=== PATIENT | female | born 1975 | race Caucasian/White ===

== ENCOUNTER 2017-10-27 09:31 | Inpatient (IN) | payer BC ==
[~2017-10-27] VITALS: Ht 170.2 cm; Wt 126.0 kg
--- OUTSIDE RECORDS SUMMARY | ~2017-10-27 | XMS | Clinical Summary ---
Demographics + + + | Address | [address] | | | [place] [address] | + + + | Home Phone | | + + + | Preferred Language | Unknown | + + + | Marital Status | | + + + | Temple Affiliation | Unknown | + + + | Race | Unknown | + + + | Ethnic Group | Unknown | + + + Author + + + | Author | [facility] | | | and [facility] | + + + | Organization | [facility] | | | and [place] | + + + | Address | Unknown | + + + | Phone | Unavailable | + + + Care Team Providers + +------+ + | Care General Car Yard Supervisor Name | Role | Phone | + [...] | 1976 | [phone] | [place] [address] | | | y[place]ka | | | [phone] | | + +--------+ +--------+ + +"
[~2017-10-27 09:31] MED LIST: ARMOUR THYROID180 MG; GABAPENTIN300 MG PO; IBUPROFEN800 MG PO; LIOTHYRONINE S25 MCG PO; LISINOPRIL2.5 MG; METOPROLOL TART50 MG PO; NORCO 5-325 TA1 EACH PO; SERTRALINE HCL100 MG PO; SYNTHROID150 MCG PO; ULTRAM50 MG PO
[2017-10-27] MEDS ORDERED: HYDROCHLOROTHIA25 MG PO (09:51)
[2017-10-27] MEDS ORDERED: SIMVASTATIN20 MG PO (09:52)
--- OUTSIDE RECORDS SUMMARY | 2017-10-27 09:55 | XMS | Clinical Summary ---
Demographics + + + | Address | [address] | | | [place] [address] | + + + | Home Phone | | + + + | Preferred Language | Unknown | + + + | Marital Status | | + + + | Alevism Affiliation | Unknown | + + + | Race | Unknown | + + + | Ethnic Group | Unknown | + + + Author + + + | Author | [facility] | | | and [facility] | + + + | Organization | [facility] | | | and [place] | + + + | Address | Unknown | + + + | Phone | Unavailable | + + + Care Team Providers + +------+ + | Care Inspector Floor Name | Role | Phone | + +------+ + | Len Mancia MD | PP | | + +------+ + Allergies + + + + + + | Active Allergy | Reactions | Severity | Noted | Comments | | | | | Date | | + + + + + + | Codeine | | | 04/24/20 | | | | | | 13 | | + + + + + + Current Medications + + +-------+---------+------+------+-------+ | Prescription | Sig. | Disp. | Refills | Star | End | Statu | | | | | | t | Date | s | | | | | | Date | | | + + +-------+---------+------+------+-------+ | thyroid (ARMOUR) | Take 120 mg by mouth | | | | | Activ | | 120 MG tablet | Daily. | | | | | e | + + +-------+---------+------+------+-------+ | thyroid (ARMOUR | Take 30 mg by mouth | | | | | Activ | | THYROID) 30 mg | Daily. | | | | | e | | tablet | | | | | | | + + +-------+---------+------+------+-------+ | cholestyramine | Take 4 g by mouth 2 | | | | | Activ | | light (QUESTRAN) 4 g | times daily. | | | | | e | | packet | | | | | | | + + +-------+---------+------+------+-------+ | metoprolol | Take 50 mg by mouth | | | | | Activ | | succinate | Daily. | | | | | e | | (TOPROL-XL) 50 mg 24 | | | | | | | | hr tablet | | | | | | | + + +-------+---------+------+------+-------+ | | Place 1 each | | | | | Activ | | etonogestrel-ethinyl | vaginally See Admin | | | | | e | | estradiol | Instructions. Insert | | | | | | | (NUVARING) | vaginally and leave | | | | | | | 0.12-0.015 MG/24HR | in place for 3 | | | | | | | vaginal ring | consecutive weeks, | | | | | | | | then remove for 1 | | | | | | | | week. | | | | | | + + +-------+---------+------+------+-------+ | sertraline | Take 100 mg by mouth | | | | | Activ | | (ZOLOFT) 100 mg | Daily. | | | | | e | | tablet | | | | | | | + + +-------+---------+------+------+-------+ Active Problems + + + | Problem | Noted Date | + + + | Hypothyroidism, iatrogenic | | + + + Social History + +-------+ +--------+------+ | Tobacco Use | Types | Packs/Day | Years | Date | | | | | Used | | + +-------+ +--------+------+ | Former Smoker | | | | | + +-------+ +--------+------+ + + +---------+ + | Alcohol Use | Drinks/We | oz/Week | Comments | | | ek | | | + + +---------+ + | Yes | | | rare | + + +---------+ + + + + | Sex Assigned at | Date Recorded | | | | + + + | Not on file | | + + + Plan of Treatment + + + + + | Health Maintenance | Due Date | Last Done | Comments | + + + + + | Vaccine: | | | | | Dtap/Tdap/Td (1 - | 4 | | | | Tdap) | | | | + + + + + | CERVICAL CANCER | | | | | SCREENING (PAP EVERY | 6 | | | | 3 YEARS 21-64 ) | | | | + + + + + | Vaccine: Influenza | | | | | (Season Ended) | 8 | | | + + + + + Results Not on filefrom Last 3 Months Insurance +---------+--------+ +------+ +---------+ | Payer | Benefi | Subscriber | Type | Phone | Address | | | t Plan | ID | | | | | | / | | | | | | | Group | | | | | +---------+--------+ +------+ +---------+ | REG[place] | REGENC | xxxxxxxxxxx | PPO | [phone] | | | E [employer] | [phone] | | [phone] | | | | [place] | | | | | | | PPO | | | | | +---------+--------+ +------+ +---------+ + +--------+ +--------+ + + | Guarantor Name | Accoun | Relation to | Date | Phone | Billing Address | | | t Type | Patient | of | | | | | | | | | | + +--------+ +--------+ + + | DOM WILKS | Person | Self [birth year] Home: | [address] | | | al/Fam | | 1976 | [phone] | [place] [address] | | | yamilka | | | [phone] | | + +--------+ +--------+ + +"
--- OUTSIDE RECORDS SUMMARY | 2017-10-27 09:55 | XMS ---
Demographics + + + | Address | [address] | | [place] [address] | + + + | Preferred Language | Unknown | + + + | Marital Status | Unknown | + + + | Mandaen Affiliation | Unknown | + + + | Race | Unknown | + + + | Ethnic Group | Unknown | + + + Author + + + | Author | [facility] | + + + | Organization | [facility] | + + + | Address | [address] | | | [place] [address] | + + + | Phone | | + + + Care Team Providers + + + + | Care Manager Style Name | Role | Phone | + + + + Unavailable | Unavailable | + + + + PROBLEMS + + + + + + + + | Type | Condition | ICD9-CM | [id number] | Onset | Condition | SNOMED | | | | Code | Code | Dates | Status | Code | + + + + + + + + | Problem | Lymphadeno | 785.6 | | | Active | [id number] | | | lolita NOS | | | | | | + + + + + + + + | Assessment | Maxillary | J01.00 | | 31 October, | Active | [id number] | | | sinusitis, | | | 2016 | | | | | acute | | | | | | + + + + + + + + ALLERGIES + + + + +--------+ | Substance | Reaction | Event Type | Date | Status | + + + + +--------+ | Percocet | Unknown | Drug Allergy | October, | Active | + + + + +--------+ | codeine | Unknown | Non Drug | October, | Active | | | | Allergy | | | + + + + +--------+ SOCIAL HISTORY No smoking Hx information available PLAN OF CARE VITAL SIGNS + + + + | Height | 69 in | 2016-10-31 | + + + + | Weight | 262.8 lbs | 2016-10-31 | + + + + | BMI | 38.80 kg/m2 | 2016-10-31 | + + + + | Temperature | 98.0 degrees Fahrenheit | 2016-10-31 | + + + + | Heart Rate | 92 /min | 2016-10-31 | + + + + | Blood pressure systolic | 158 mm Hg | 2016-10-31 | + + + + | Blood pressure diastolic | 112 mm Hg | 2016-10-31 | + + + + MEDICATIONS + + + + +--------+ + +--------+ | Medicati | Instruct | Dosage | Frequenc | Start | End Date | Duration | Status | | on | ions | | y | Date | | | | + + + + +--------+ + +--------+ | Metoprol | Orally | 1 tablet | 12h | | | | Active | | ol | Twice a | | | | | | | | Tartrate | day | | | | | | | | 100 MG | | | | | | | | + + + + +--------+ + +--------+ | Amoxicil | Orally | 1 tablet | 12h | | 16 October, | 10 | Active | | berry 875 | bid | | | | 2017 | day(s) | | | MG | | | | | | | | + + + + +--------+ + +--------+ | Zoloft | Orally | 1 tablet | 24h | | | | Active | | 200 mg | Once a | | | | | | | | | day | | | | | | | + + + + +--------+ + +--------+ | Lisinopr | Orally | 1 tablet | 24h | | | | Active | | il 20 MG | Once a | | | | | | | | | day | | | | | | | + + + + +--------+ + +--------+ | [place] | Orally | 1 tablet | 24h | | | 30 | Active | | Thyroid | Once a | | | | | day(s) | | | 180 MG | day | | | | | | | + + + + +--------+ + +--------+ RESULTS No Results PROCEDURES + + + + + | Procedure | Date Ordered | Related Diagnosis | Body Site | + + + + + | Est Level III | October 31, 2016 | | | | Intermediate | | | | + + + + + | DSCH[facility] MED/CURRENT | October 31, 2016 | | | | MED MERGE | | | | + + + + + | DOC MEDS VERIFIED | October 31, 2016 | | | | W/PT OR RE | | | | + + + + + IMMUNIZATIONS No Known Immunizations"
--- OUTSIDE RECORDS SUMMARY | 2017-10-27 09:55 | XMS | Clinical Summary ---
Demographics + + + | Address | [address] | | | [place] [address] | + + + | Home Phone | | + + + | Preferred Language | Unknown | + + + | Marital Status | | + + + | Episcopal Affiliation | Unknown | + + + | Race | Unknown | + + + | Ethnic Group | Unknown | + + + Author + + + | Author | [facility] | | | and [facility] | + + + | Organization | [facility] | | | and [place] | + + + | Address | Unknown | + + + | Phone | Unavailable | + + + Care Team Providers + +------+ + | Care Head Usher Name | Role | Phone | + [...] | 1976 | [phone] | [place] [address] | | | [place] | | | [phone] | | + +--------+ +--------+ + +"
--- NOTE | 2017-10-27 15:45 | NUR ---
CALLED TO REPORT FINDINGS FROM [facility] SCREENING POSITIVE. SAID HE WOULD PUT IN NEW ORDERS. WILL MONITOR PT CLOSELY.
--- NOTE | 2017-10-27 15:48 | NUR ---
PATIENT JUST ARRIVED FROM ED. THIS SPORTS NUTRITIONIST ASSISTED TO SET UP PATIENT WITH ORAL SWABS AND SCD'S. RN IN ROOM. CALL LIGHT IN REACH. NO OTHER NEEDS AT THIS TIME.
--- NOTE | 2017-10-27 16:44 | NUR ---
PT RECEIVED FROM ED. ADMISSION COMPLETED. PT WITH FEVER 101.5, TACHYCARDIC, NOTIFIED, ORDERS PLACED FOR IV FLUIDS, BLOOD CULTURES, AND TORAOL AND TYLENOL. PT PAIN 8/10, GIVEN 4 MG IV MORPHINE. PT ON ROOM AIR, LUNG SOUNDS CLEAR, DENIES SOB. PT WITH ABD PAIN TO RLQ, RADIATING TO BACK. CMS INATCT, PULSES PALPABLE. SKIN GROSSLY INTACT, MULTIPLE TATTOOS. IV FLUID BOLUS INFUSING, TYLENOL AND TORADOL GIVEN FOR PAIN AND FEVER. BLOOD CULTURES DRAWN. PT ASSISTED TO BATHROOM AND BACK TO BED. PT DENIES OTHER NEEDS AT THIS TIME.
--- NOTE | 2017-10-27 17:41 | NUR ---
PATIENT RESTING IN BED. RN IN ROOM. ORAL SWABS AT BEDSIDE, CALL LIGHT IN REACH, NO OTHER NEEDS AT THIS TIME.
--- NOTE | 2017-10-27 18:01 | NUR ---
PT REQUESTING PAIN MEDICATION, GIVEN 5 MG IV MORPHINE. IV ABX INFUSING. PT HR 107, TEMP 100.8. PT DENIES OTHER NEEDS AT THIS TIME.
--- NOTE | 2017-10-27 18:02 | NUR ---
PT RECEIVED FROM ED THIS EVENING. PT ON ROOM AIR, LUNG SOUNDS CLEAR. PT NPO. IV FLUIDS INFUSING D5LR AT 125 ML/HR, RECEIVED 1L LR BOLUS AND IV ABX. PT PAIN CONTROLLED WITH 5 MG IV MORPHINE. PT UP WITH SBA TO BATHROOM, VOIDING. POSSIBLE SURGERY IN THE AM.
--- NOTE | 2017-10-27 19:26 | NUR ---
BEDSIDE REPORT RECEIVED FROM ELIANA NOGUERA. PT AWAKE, LYING IN BED, RATES PAIN 3/10 IN RLQ. PT STATES SHE IS HAVING SOME NAUSEA, EDUCATED PT TO USE CALL LIGHT, CALL LIGHT IN REACH. PT HAS SCDS ON. GIVEN HOT BACK FOR NECK. D5LR INFUSING WNL.
--- NOTE | 2017-10-27 20:32 | NUR ---
CALL LIGHT ANSWERED, PT C/O 8/10 PAIN IN RLQ, AND FLANK, NAUSEA. PRN MORPHINE 5 MG IV AND IV ZOFRAN 4MG ADMINISTERED AT THIS TIME. BOWEL TONES ACTIVE X 4, ABDOMEN SOFT, TENDER IN RLQ W PALPATION. LUNGS DIMINISHED, CLEAR THROUGHOUT. HR REGULAR RHYTHM. PT DENIES TOILETING NEEDS. SCDS ON. WARM BLANKET PROVIDED, AFEBRILE. CALL LIGHT IN REACH, FAMILY IN ROOM TO VISIT.
--- NOTE | 2017-10-27 21:10 | NUR ---
CALL LIGHT ANSWERED, PT REQUESTING LIGHTS TURNED OFF, CPAP ON AT THIS TIME, NO ADDL REQUESTS. SCDS ON, IVF INFUSING.
--- NOTE | 2017-10-27 22:40 | NUR ---
IN PT ROOM TO CHECK ON PT, PT MOVING AROUND IN BED, REMOVED CPAP. PT RATES PAIN 10/10 IN ABDOMEN, PRN MORPHINE 8 MG IV ADMINISTERED AT THIS TIME, SBA TO RESTROOM FOR 300 ML CONCENTRATED VOID. BACK TO BED, SCDS ON. PILLOW GIVEN TO PT TO BRACE ABDOMEN. IVF INFSUING WNL. CALL LIGHT AND PERSONAL SUPPLIES IN REACH, PT GIVEN SIP OF WATER FOR COMFORT ALLOTTED, INSTRUCTED NPO OTHERWISE, PT VERBALIZED UNDERSTANDING. LIGHTS OFF IN ROOM.
--- NOTE | 2017-10-28 00:30 | NUR ---
IN PT ROOM FOR ANTIBIOTIC ADMINISTRATION, PT SITTING UP IN BED, EMESIS BAG IN HAND, PT C/O NAUSEA, PRN ZOFRAN 4MG ADMINISTERED AT THIS TIME. PT RATES PAIN 8/10, MOANING IN PAIN IN BACK, RLQ, STATES "I FEEL LIKE I'M GETTING STABBED IN MY BACK". PRN MORPHINE IV 8 MG, TORADOL, AND PRN TYLENOL ADMINISTERED AT THIS TIME. TEMPERATURE 100.6 ORALLY. BP 113/58 (71), HR 107, SPO2 97% ON ROOM AIR. BOWEL TONES PRESENT, HYPOACTIVE. ABDOMEN SOFT, TENDER IN RLQ W PALPATION. PT C/O SWELLING IN FEET, LEGS ELEVATED, NO EDEMA NOTED, CSM INTACT BUE, BLE. IV ANTIBIOIC INFUSING. CALL LIGHT IN REACH, PT HAS EMESIS BAG. GIVEN COOL CLOTH, ICE PACK. NO ADDL REQUESTS.
--- NOTE | 2017-10-28 01:34 | NUR ---
CHECKED ON PT, PT APPEARS TO BE SLEEPING, EYES CLOSED, HOME CPAP ON, SPO2 94%, HR 86. LIGHTS OFF IN ROOM.
--- NOTE | 2017-10-28 03:44 | NUR ---
CALL LIGHT ANSWERED, SBA TO RESTROOM FOR 600 ML VOID AND BACK TO BED, PT C/O 5.5-6/10 PAIN IN BACK, ABDOMEN, PT DRY HEAVING AT THIS TIME, NO EMESIS. PRN MORPHINE 5 MG AND PRN ZOFRAN 4MG ADMINISTERED IV. IVF INFUSING WNL, SCDS ON. CALL LIGHT IN REACH.
--- NOTE | 2017-10-28 05:29 | NUR ---
PT C/O PAIN IN BACK, RLQ THROUGHOUT SHIFT, RECEIVING MORPHINE, TORADOL, AND TYLENOL PRN THROUGHOUT SHIFT. C/O NAUSEA, NO EMESIS, PT DRY HEAVING, RECEIVING PRN ZOFRAN THROUGHOUT SHIFT. MINIMAL SLEEP, SATURATING WELL ON HOME CPAP AND ROOM AIR. SBA TO RESTROOM FOR QUANTITY SUFFICIENT VOIDS. IVF INFUSING WNL THROUGHOUT SHIFT. SCDS ON.
--- NOTE | 2017-10-28 05:57 | NUR ---
VITALS AND I&OS DONE AND CHARTED. GARBAGES EMPTIED. PT WOULD LIKE SOMETHING FOR NAUSEA. I TOLD HER RN KASHMIR.
--- NOTE | 2017-10-28 06:00 | NUR ---
PT C/O NAUSEA, CONTINUES TO DRY HEAVE, NO EMESIS, RATES PAIN 7/10 IN RLQ, BACK. PRN ZOFRAN 4MG AND PRN MORPHINE 5MG ADMINISTERED. BOWEL TONES PRESENT, HYPOACTIVE X 4, ABDOMEN SOFT, TENDER W PALPATION IN RLQ. PT ON ROOM AIR. IV ANTIBIOTIC INFUSING WNL. SCDS ON. CALL LIGHT IN REACH.
--- NOTE | 2017-10-28 06:31 | NUR ---
PHONE CALL TO DR. RODRIGUEZ TO UPDATE ON PT CONDITION, CONTINUED NAUSEA AND PAIN. TELEPHONE ORDER TO CHANGE ORDER FOR MORPHINE TO 4-8 MG Q30MIN IV PRN PAIN AND TO ADD PRN PHENERGEN 12.5 MG Q6H IV TO ORDERS. ORDERS REPEATED BACK.
--- NOTE | 2017-10-28 06:57 | NUR ---
PT CONTINUES TO DRY HEAVE, C/O NAUSEA, PRN PHENERGAN 12.5 MG ADMINISTERED AT THIS TIME. EMESIS BAG WITH PT, SCDS ON. IVF INFUSING WNL.
--- NOTE | 2017-10-28 07:10 | NUR ---
BEDSIDE HANDOFF REPORT RECEIVED FROM RADIAGRAPH OPERATOR RN. PT RESTING IN BED. D5LR INFUSING AT 125 ML/HR. PT DENIES NEEDS AT THIS ITME.
--- NOTE | 2017-10-28 08:00 | NUR ---
PT RESTING IN BED. PT RATING PAIN 3-4/10, DENIES NEED FOR PAIN MEDICATION. PT CONTINUES TO FEEL NAUSEATED, NPO, BOWEL TONES ACTIVE. PT ON ROOM AIR, LUNG SOUNDS CLEAR, DENIES SOB. PT CMS INTACT, WIHTOUT EDEMA, PULSES PALPABLE. D5LR INFUSING AT 125 ML/HR. PT DENIES OTHER NEEDS AT THIS TIME, REQUESTING TO REST.
--- NOTE | 2017-10-28 08:40 | NUR ---
STANDBY ASSIST TO BR. PATIENT BECAME VERY NAUSEAUS AND SAT DOWN ON SHOWER CHAIR FOR A FEW MINUTES. NEW GOWN GIVEN, STANDBY ASSIST BACK TO BED, PAITIENT PAIN LEVEL HAS INCREASED THIS AM WELL. URINE DRK PARVIZ IN COLOR, 400ML-REPORTED TO ELIANA NOGUERA. CALL LIGHT IN REACH, NEW PULSE OX ON FINGER. NO OTHER NEEDS.
[2017-10-28] MEDS ORDERED: PRINIVIL20 MG PO (08:47)
[2017-10-28] MEDS ORDERED: METOPROLOL TAR100 MG PO (08:47)
[2017-10-28] MEDS ORDERED: ARMOUR THYROID240 MG PO (08:48)
--- NOTE | 2017-10-28 09:15 | NUR ---
PT NAUSEATED, REQUESTING ANTIEMETIC, GIVEN 4 MG IV ZOFRAN. PT RATING PAIN 8/10, GIVEN 8 MG IV MROPHINE. PT DENIES OTHER NEEDS AT THIS TIME.
[2017-10-28] MEDS ORDERED: VITAMIN B-121000 MCG PO (09:38)
[2017-10-28] MEDS ORDERED: VITAMIN D10000 UNIT PO (09:39)
[2017-10-28] MEDS ORDERED: POTASSIUM GLUCO99 MG PO (09:39)
[2017-10-28] MEDS ORDERED: IBUPROFEN200 MG PO (09:40)
--- NOTE | 2017-10-28 09:47 | NUR ---
new bag of iv fluids hung and running at this time
--- NOTE | 2017-10-28 09:49 | NUR ---
MED REC COMPLETE
--- NOTE | 2017-10-28 10:50 | NUR ---
PT REQUESTING PAIN MEDICATION, RATING PAIN 7-8/10, GIVEN 8 MG IV MORPHINE. LACTIC LAB DRAW COMPLETED. SIGNED CONSENT PLACED ON CHART. PT DENIES OTHER NEEDS AT THIS TIME.
--- NOTE | 2017-10-28 12:30 | NUR ---
PT NAUSEATED AND COMPLAINT OF PAIN. GIVEN IV PHENERGAN AND MORPHINE. PT PLACED ON CPAP FOR NAP. IV FLUIDS CONTINUE TO INFUSE AT 125 ML/HR. NO ACUTE CHANGES. PT DENIES OTHER NEEDS AT THIS TIME. DISCUSSED PLAN TO SHOWER AFTER NAP, PT AGREEABLE.
--- NOTE | 2017-10-28 13:34 | NUR ---
Patient's antibiotic infusion complete, unhooked and capped line, patient has saline lock until next antibiotic infusion.
--- NOTE | 2017-10-28 14:04 | NUR ---
PT SALINE LOCKED FOR SHOWER, HEBICLEANSE SOAP PROVIDED. SHIRLEY TO ASSIST PT WITH SHOWER.
--- NOTE | 2017-10-28 14:15 | NUR ---
STANDBY ASSIST TO SHOWER,PATIENT WAS GIVEN HIBACLENS TO USE PER ELIANA NOGUERA. THIS MANAGER INTERNSHIP SET SHOWER UP, IN TO ASSIST PATIENT. LINENS CHANGED. THIS MANAGER INTERNSHIP ASSISTED PATIENT IN COMBING HAIR AFTER SHOWER. PAIN 03/07 RN NOITFIED. CALL LIGHT IN REACH
--- NOTE | 2017-10-28 14:28 | NUR ---
PT LAYING IN BED ON HER RIGHT SIDE. SHE WAS ALERT AND ORINETED BUT IN SOME PAIN. PT REQUESTED PRAYER, AND WILL CONTINUE TO FOLLOW NEEDED
--- NOTE | 2017-10-28 16:30 | NUR ---
PT TO OR WITH DAY SURGERY RN.
--- NOTE | 2017-10-28 17:57 | NUR ---
PT WENT FOR SURGERY THIS AFTERNOON. PRIOR TO SURGERY, PT WITH PAIN AND NAUSEA, CONSISTENTLY RECEIVED 8 MG IV MORPHINE, ZOFRAN AND PHENERGAN. UP WITH 1PA. IV FLUIDS D5LR AT 125 ML/HR, FLAGYL AND ANCEF.
--- NOTE | 2017-10-28 18:10 | EKG ---
[facility] [address] [place] [address] Signed Normal sinus rhythm Normal ECG No previous ECGs available Confirmed by BRAEDEN SLATER MD ([id number]) on 10/28/2017 6:09:47 PM Electronically Signed By: BRAEDEN SLATER MD 10/28/17 1810 PATIENT NAME: DOM SANDOVAL BRIAN Electrocardiogram DATE OF : 73 PHYSICIAN: BRAEDEN SLATER MD REPORT #: [id number] REPORT IS CONFIDENTIAL AND NOT TO BE RELEASED WITHOUT AUTHORIZATION
--- NOTE | 2017-10-28 18:48 | NUR ---
10/28/171847 Patsy Bravo PATIENT ARRIVES TO PACU W/SNORING SOUNDS HEARD. JAW LIFT DONE. PATIENT OPENS HER EYES AND FALLS QUICKLY BACK TO SLEEP WHEN JAW IS LIFTED. PATIENT BRACES ABDOMEN AND COUGHS AND TOLERATES THAT WELL.
--- NOTE | 2017-10-28 19:30 | NUR ---
PATIENT RETURNED FROM SURGERY. ABLE TO MOVE FROM STRETCHER TO BED WITHOUT ASSIST. REPORT RECEIVED FROM BLANKET WINDER OPERATOR. STRUCTURAL WELDER IN ROOM TO TAKE VS. PATIENT REQUESTING A FAN FOR COMFORT TO SLEEP. STRUCTURAL WELDER RECEIVED FAN FROM [facility].
--- NOTE | 2017-10-28 20:00 | NUR ---
PATIENT BACK FROM SURGERY. AAOX4. PAIN WELL CONTROLLED. 10/05. 2L NC, CONTINUOUS PULSE OX. O2 SAT 94%. NO NAUSEA. TOLERATING ICE CHIPS. ABD IS ROUND AND MODERATELY DISTENDED, TENDER. LAP SITES X4 WITH SMALL AMOUNT OF RED DRAINAGE. BOWEL SOUNDS ACTIVE. CALVO IN PLACE. IV FLUIDS INFUSING PER ORDER. SCDS IN USE. PATIENT WAS ABLE TO TRANSFER TO BED FROM [facility] WITHOUT ASSISTANCE. STEADY ON HER FEET BUT VERY PAINFUL. MEDS MECHANIC SENIOR PER SCHEDULE. RT SET UP PATIENT'S CPAP. ALL QUESTIONS ANSWERED. VS WNL.
--- NOTE | 2017-10-28 21:07 | NUR ---
PATIENT REPORTS PAIN INCREASED TO 8/10. PRN MORPHINE PROVIDED. PATIENT INTERESTED IN EATING SOME FOOD. DECIDED ON SOME SOUP WHICH MANAGER GROUP HOME WILL MAKE HER.
--- NOTE | 2017-10-28 21:50 | NUR ---
PATIENT REQUESTED SOME SOUP, WHICH SHE WAS ABLE TO TOLERATE WITHOUT NAUSEA. SHE CONTINUES TO REPORT PAIN, 01/04. PRN MORPHINE PROVIDED.
--- NOTE | 2017-10-28 22:20 | NUR ---
SCHEDULED ABX STARTED. PATIENT HAS HAD NO NAUSEA AND BEEN ABLE TO TOLERATE SOME REGULAR FOOD. PROVIDED 1 TAB NORCO TO OBTAIN BETTER PAIN CONTROL. PATIENT IS AAOX4. O2 SAT 94% ON 2L. RR 16. OTHER VS WNL. SHE IS READY TO TRY TO SLEEP. CPAP IN USE NOW. SCDS ON. CALVO DRAINING WELL, URINE OUTPUT QS. IV FLUIDS INFUSING PER ORDER. LAP SITES WNL.
--- NOTE | 2017-10-28 23:52 | NUR ---
PATIENT IS LAYING IN BED WITH HER HEAD COVERED WITH BLANKET AND CPAP IN PLACE. IF FLUIDS FINISHED. NEW BAG STARTED. PATIENT DENIES NEEDS AT THIS TIME. O2 SAT 96%.
--- NOTE | 2017-10-29 00:30 | NUR ---
PATIENT WOKE FROM SLEEP FEELING VERY NAUSEOUS. PROVIDED PRN ZOFRAN. PATIENT ALSO REQUESTING PRN PAIN MEDS. IV TORADOL GIVEN. PATIENT RESTING IN BED SITTING UP. EMESIS BAG IN HAND.
--- NOTE | 2017-10-29 00:50 | NUR ---
PATIENT ACTIVELY VOMITING. REQUESTING PRN PAIN MEDS WELL. ASSURED HER THAT GETTING HER NAUSEA UNDER CONTROL FIRST IS THE BEST PLAN. PRN PHENERGAN GIVEN OVER 8MINS ON THE IV PUMP. WILL CONTINUE TO MONITOR.
--- NOTE | 2017-10-29 01:25 | NUR ---
PATIENT FEELS THE NAUSEA HAS PASSED. SHE IS AAOX4. RR 16. O2 SAT 98% ON 2L NC. PATIENT REQUESTING PRN PAIN MEDS FOR PAIN 12/05. PRN MORPHINE PROVIDED. PATIENT REQUESTING SOME SALTINE CRACKERS. ANANDA SEPTEMBER RECEIVED HER SNACK AND COMPLETED VS.
--- NOTE | 2017-10-29 01:45 | NUR ---
VITALS AND I&OS DONE AND CHARTED. PER PT REQUEST I GAVE HER SOME SALT CRACKERS. FRESH ICE WELL. BEDSIDE TABLE AND CALL LIGHT WITHIN REACH. PT NEEDS NOTHING ELSE AT THIS TIME.
--- NOTE | 2017-10-29 02:00 | NUR ---
VS WNL. PATIENT REPORTS NAUSEA HAS IMPROVED. GOING TO TRY SLEEPING SOME MORE. CPAP IN USE.
--- NOTE | 2017-10-29 04:30 | NUR ---
PATIENT WAS ABLE TO SLEEP FOR A FEW HOURS BUT WOKE WITH INCREASED PAIN. PRN MORPHINE PROVIDED. PATIENT REPORTS SOME "CRAMPING" PAIN IN HER STOMACH. WARM BLANKET PROVIDED FOR COMFORT. SHE REFUSES TO AMBULATE AT THIS TIME, STATES "IT ISN'T GAS PAIN, IT'S LIKE I NEED TO GO TO THE BATHROOM BUT I DON'T". EDUCATED HER ON THE SHORT TERM EFFECTS OF IV PAIN MEDS AND BENEFITS OF PO PAIN MEDS. ENCOURAGED HER TO TRY EATING TO SEE IF SHE CAN TOLERATE NORCO THIS AM.
--- NOTE | 2017-10-29 05:45 | NUR ---
PATIENT SLEPT OFF AND ON THROUGHOUT THE NIGHT. PRN MORPHINE PROVIDED X4. PATIENT EXPERIENCED ONE EPISODE OF EMESIS AFTER EATING SOUP AND HAVING 1 NORCO. NO NAUSEA SINCE IV PHENERGAN GIVEN AT 0050. PATIENT TOLERATING WATER AND CRACKERS, BUT HAS POOR APPETITE. IV FLUIDS INFUSING PER ORDER. CALVO IN PLACE, OUTPUT QS. LAP SITES X4, STERI STRIPS. MINIMAL DRAINAGE. SCDS. 2L NC WHILE AWAKE AND CPAP WHILE SLEEPING. SBA TO BATHROOM.
--- NOTE | 2017-10-29 06:15 | NUR ---
PATIENT IS UNCOMFORTABLE IN THE BED AND HAVING ABD CRAMPING. ENCOURAGED HER TO AMBULATE. PATIENT ABLE TO SIT TO SIDE OF BED EASILY BUT BECAME LIGHTHEADED AND DIZZY WHEN STANDING. SAT AT SIDE OF BED FOR 5MIN. ABLE TO AMBULATE TO RECLINER WITH 1PA HOLDING HER HAND. PATIENT FEELS MORE COMFORTABLE SITTING UP. SHE IS WANTING TO GO HOME EARLY THIS AM. DISCUSSED NEED FOR PROPER PAIN CONTROL AND CONTROL OF NAUSEA. PATIENT IS EATING CRACKERS AND ICE CHIPS, DENIES NAUSEA. WANTING TO TRY SOME NORCO FOR PAIN MANAGEMENT. 1 NORCO PROVIDED WITH SOME PRN ZOFRAN. IV ABX STARTED. PATIENT WANTING CALVO REMOVED. WILL DISCUSS THIS WITH .
--- NOTE | 2017-10-29 06:56 | NUR ---
SPOKE WITH ABOUT PATIENT'S STATUS. HE AGREED TO DC THE CALVO WHICH WAS DONE AT 0645. IV TO BE SL, IV ABX INFUSING AT THIS TIME. PATIENT DENIES ANY NAUSEA BUT FEELS HER STOMACH IS BURNING FROM LACK OF FOOD. SHE HAS ORDERED BREAKFAST AND IS EATING CRACKERS.
--- NOTE | 2017-10-29 07:56 | NUR ---
HELPED PATIENT TRANSFER FROM HER CHAIR BACK TO BED. NOW SHE IS WAITING FOR HER BREAKFAST.
--- NOTE | 2017-10-29 08:03 | NUR ---
patient called because she was starting to get nauseated. phenergan 12.5 given. patient assisted from chair back to bed. patient tolerated transfer with stby assist. awaiting breakfast. patient stating, "i really wants to try and go home today". updated patient on place of care. patient is due to void and needs to ambulate in [place]. assessment complete.
--- NOTE | 2017-10-29 08:51 | NUR ---
PATIENT'S PAIN IN HER ABDOMEN IS AT A 7/10 AFTER TAKING A NORCO 1 TABLET AT 0630 PATIENT GIVEN HER SECOND NORCO AT THIS TIME. SHE TOLERATED HER OATMEAL SO IV WAS SALINE LOCKED AT THIS TIME.
--- NOTE | 2017-10-29 08:51 | NUR ---
one tab of norco given for pain. patient finished 100 percent of oatmeal. nausea remains okay at this time.
--- NOTE | 2017-10-29 09:32 | NUR ---
patient stating pain improving with 1 tab norco. was able to tolerate 50 percent of breakfast and was wanting to pick at home other items on tray. patient stating as of right now now nausea. patient requesting to rest until 1000 and then agreed to go on walk in [place]. patient is still due to void. patient stating no urge to void at this time.
--- NOTE | 2017-10-29 10:49 | NUR ---
PT RESTING IN BED. SAID THAT NAUSEA IS NOT AN ISSUE NOW. SHE STATED HER BP IS LOW, AND SHE WONDERS IF THAT IS CAUSING HER DIZZINESS. SHE NORMALLY HAS TO DEAL WITH HIGH BP. SHE HOPES TO BE DC'D TODAY. PT REQUESTED PRAYER, WILL FOLLOW NEEDED
--- NOTE | 2017-10-29 11:41 | NUR ---
PT WAKLED ONE FULL LAP AND THEN WAS ABLE TO VOIED 100ML OF URINE. PT IS NOW RESTING IN BED AND ASKING FOR PAIN MEDS AND WHEN SHE CAN GO HOME. WILL NOTIFY NURSE
--- NOTE | 2017-10-29 12:13 | NUR ---
PATIENT STATED THAT AFTER HER WALK HER PAIN WAS 7/10. NO NAUSEA. STARTING TO EAT ON HER LUNCH WHILE RESTING IN BED. 1 TAB NORCO GIVEN. TORADOL GIVEN. CALL LIGHT WITHIN REACH. VITALS RECHECKED. DAHIANA ALSO WAS ABLE TO VOID 100MLS. PATIENT STATING SHE STILL FEELS LIGHT HEADED WHEN AMBULATING. EDUCATION ABOUT CALLING FOR ASSISTANCE WHEN GETTING UP IN ROOM.
--- NOTE | 2017-10-29 12:50 | NUR ---
PATIENT SITTING UP IN BED. PATIENT STATING NO NAUSEA AT THIS TIME. PAIN IMPROVED. TOLERATED LUNCH WELL. NO NAUSEA.
[2017-10-29] MEDS ORDERED: MAPAP325 MG PO (14:52)
[2017-10-29] MEDS ORDERED: HYDROCODON-ACE1 EA11 PO (14:52)
--- NOTE | 2017-10-29 16:05 | NUR ---
DR. RODRIGUEZ INTO ROOM TO EVALUATE PATIENT. DISCHARGED INFORMATION GIVEN TO PATIENT. PHARMACY IN ROOM TO GIVEN MEDICATION INFORMATION.
--- NOTE | 2017-10-30 10:03 | HP ---
[facility] [address], [place] [address] Signed ADMISSION DATE: 10/27/2017 TIME: 3:00 p.m. PROBLEM: Right-sided abdominal pain, fever, elevated white count. HISTORY OF PRESENT ILLNESS: This morbidly obese white woman presented to the emergency room where she was thoroughly evaluated by Dr. Trevino. Her complaint was mostly right-sided abdominal pain mostly in the right mid abdomen. She had complaints of nausea without vomiting. All of her pain started about last night at midnight. She does admit that there was some antecedent buildup of right-sided abdominal pain earlier in the day yesterday. Her evaluation included a clinical exam showing right-sided abdominal tenderness and CBC showing white count of 14.1 with a normal Chem profile, liver enzymes, and lipase. Coag studies normal and urinalysis also normal. Of note, patient has undergone cholecystectomy in the past by laparoscopic approach and hysterectomy with preservation of both ovaries. Ultimately, a CT scan of the abdomen was performed, which showed surgical absence of the gallbladder with the appendix considered normal and retrocecal. Small and large bowel normal, and surgical absence of the uterus, but the right ovary appeared to be indistinguishable from adjacent bowel loops, and may have contained a cyst. The bladder was thick-walled due to decompression. Recommendation was made for a transvaginal ultrasound, which was performed in addition to pelvic ultrasound, which showed right ovary and adnexal region obscured by bowel gas. The patient does smoke occasionally, but does not drink alcohol. SOCIAL HISTORY: She is . She has three children of her own, and three additional foster children, one infant who will additionally be adopted. 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 REVIEW OF SYSTEMS: She denies any shortness of breath or chest pain. She has had no dysphagia. She feels "hot." Notably, she describes Graves' disease, for which she has had radiation treatment. I am uncertain of her current thyroid status. Electronically Signed By: ELEONORA RODRIGUEZ MD 10/30/17 1003 PATIENT NAME: DOM SANDOVAL HISTORY AND PHYSICAL DATE OF : 73 REPORT #: [id number] PHYSICIAN: ELEONORA RODRIGUEZ MD PCP: EREN MANCIA MD REPORT IS CONFIDENTIAL AND NOT TO BE RELEASED WITHOUT AUTHORIZATION [facility] [address], [place] [address] Signed PHYSICAL EXAMINATION: GENERAL: An obese white woman who looks to be quite uncomfortable. She is laying on her right side. Her knees are somewhat withdrawn up. Her trachea is midline. NECK: Not particularly tender. CHEST: Shows normal respiratory excursion without tachypnea. HEART: Regular. ABDOMEN: Obese. There is minimal Rovsing sign, and some tenderness in the right abdomen. SKIN: Her skin is hot to the touch and dry. She has no sign of diaphoresis. EXTREMITIES: No clubbing, cyanosis, or edema. LABORATORY DATA: Lab studies were as previously described. Most notably, white count elevated at 14.1. Her CT scan reports are available to me, but the images are not available at this moment. I will need to look at them in a different workstation. ASSESSMENT: She has elevated white count, temperature to 102. Generally is doing poorly, and with right-sided abdominal pain. Her tenderness is above the level of the appendix, and she has had cholecystectomy in the past. She shows no sign of bowel ischemia, or bowel obstruction particularly. I believe at minimum she needs to be directly admitted to the hospital given additional fluid resuscitation, and we will make an assessment of her thyroid function tests as well given her history of thyrotoxicosis. Notably, she is a patient Dr. Mancia. Close clinical examination would be most appropriate in her situation. She may ultimately require laparoscopy or other intervention to better define the problem. We reviewed this in detail, and she agrees. MD KELLI Perales/TRANGL /[id number] cc: Dr. Trevino. Dr. Mancia. Electronically Signed By: ELEONORA RODRIGUEZ MD 10/30/17 1003 PATIENT NAME: DOM SANDOVAL HISTORY AND PHYSICAL DATE OF : 73 REPORT #: [id number] PHYSICIAN: ELEONORA RODRIGUEZ MD PCP: EREN MANCIA MD REPORT IS CONFIDENTIAL AND NOT TO BE RELEASED WITHOUT AUTHORIZATION [facility] [address], [place] [address] Signed Copies: ~ Electronically Signed By: ELEONORA RODRIGUEZ MD 10/30/17 1003 PATIENT NAME: DOM SANDOVAL BRIAN HISTORY AND PHYSICAL DATE OF : 73 REPORT #: [id number] PHYSICIAN: ELEONORA RODRIGUEZ MD PCP: EREN MANCIA MD REPORT IS CONFIDENTIAL AND NOT TO BE RELEASED WITHOUT AUTHORIZATION
--- NOTE | 2017-10-30 10:03 | OR ---
[facility] [address] [place], [place] [address] Signed DATE OF OPERATION: 10/28/2017 SURGEON: Eleonora Rodriguez MD PREOPERATIVE DIAGNOSES: 1. Persistent right mid abdominal pain. 2. Morbid obesity. 3. History of hysterectomy and cholecystectomy. POSTOPERATIVE DIAGNOSES: 1. Inflamed right periovarian cystic lesion, tube versus ovarian cyst. 2. Difficult airway. PROCEDURES: 1. Laparoscopy with laparoscopic lysis of adhesions. 2. Laparoscopic excision of right ovary and inflamed periovarian cystic lesion (prolonged complicated difficult). ANESTHESIA: General endotracheal, Olivia Lester CRNA and local 15 mL of 0.25% Marcaine with epinephrine. INDICATION: This morbidly obese 42-year-old white woman has numerous medical problems including hypertension, smoking and so on. She presented to the emergency room yesterday with severe right mid abdominal pain. A CT scan showed no clear evidence of lesion. However, there were findings associated with her ovary that were suggestive of possible source of the problem. She has had cholecystectomy in the past and ovary sparing hysterectomy. She had no evidence of bowel obstruction or other issues. She was observed after antibiotic therapy was initiated and offered laparoscopic evaluation last night, which she declined hoping that she would improve. Her white count was initially elevated to 14.1 and is normal today. Today, however, an AST and ALT liver enzymes increased to the 400s level preoperatively in the teens. Her bilirubin and alkaline phosphatase are normal. She is noted to have a poor airway including small chin obesity and so forth, but mindful of these significant impediment to care is to now undergo a laparoscopy and remedy of the problem even if it requires an open approach. She understands risks of bleeding, infection, failure of diagnosis, missed diagnosis, need for open procedure and Electronically Signed By: ELEONORA RODRIGUEZ MD 10/30/17 1003 PATIENT NAME: DOM SANDOVAL OPERATIVE REPORT DATE OF : 73 REPORT #: [id number] PHYSICIAN: ELEONORA RODRIGUEZ MD PCP: EREN MANCIA MD REPORT IS CONFIDENTIAL AND NOT TO BE RELEASED WITHOUT AUTHORIZATION [facility] [address] [place], [place] [address] Signed other unforeseen complications and wished to proceed. FINDINGS: The problem causing the issue was a very inflamed periovarian cystic lesion. I could not tell whether this was a chronically inflamed retained tube or a somewhat abnormal appearing cystic lesion of the ovary itself. The ovary proper was normal, however, was contiguous with the inflamed lesion and could not be spared. There were adhesions of omentum and in particular taenia epiploica from the sigmoid to the anterior abdominal wall requiring lysis of adhesions for good exposure. The small bowel itself looked normal. The appendix was normal. The gallbladder was absent. The liver appeared reasonably normal with only mild fatty infiltration. By conclusion, the entire right ovary and the contiguous inflamed cyst were removed entirely. DESCRIPTION OF PROCEDURE: The patient was brought to the operating room, given a general endotracheal anesthetic with the aid of a GlideScope. She was noted by the lean manufacturing coordinator to have a difficult airway based on her jaw configuration obesity and so on. After satisfactory anesthesia, the abdomen was prepared with a chlorhexidine solution and draped sterilely after placement of a Burt catheter. She had other incisions in the region of the umbilicus and a non incarcerated incisional hernia at the umbilicus. An infraumbilical incision was made and using an open Shawn cannula technique, the abdomen was entered without problem. Plan for pneumoperitoneum to a level of 14 mmHg with carbon dioxide gas. Intraabdominal inspection was undertaken showing some inflammatory fluid in the right lower abdomen. No sign of purulence, however. The appendix was visible and appeared reasonably normal as did the cecum and terminal ileum. A 12 mm epigastric port was placed. The camera placed to that area allowing for manipulation of the right-sided abdominal organs. Examination of the upper abdomen showed the liver to be reasonably normal. There was surgical absence of the gallbladder. A lower mid 5 mm trocar was placed allowing for two hand manipulation of the organs. The cecum was more fully evaluated as was the terminal ileum which appeared normal. The appendix was elongated, but normal and not inflamed at all particularly. Attention was then turned towards the right ovary. The head was placed somewhat head-down and [id number]. This allowed for manipulation of the ovary which was somewhat adherent to the right pelvic sidewall. The inflamed cystic lesion was nearly the size of the ovary and did not have the typical appearance of an ovarian cyst. Almost that of an inflamed closed loop type problem of retained right salpinx. In any Electronically Signed By: ELEONORA RODRIGUEZ MD 10/30/17 1003 PATIENT NAME: DOM SANDOVAL OPERATIVE REPORT DATE OF : 73 REPORT #: [id number] PHYSICIAN: ELEONORA RODRIGUEZ MD PCP: EREN MANCIA MD REPORT IS CONFIDENTIAL AND NOT TO BE RELEASED WITHOUT AUTHORIZATION [address] [address] Signed case this meticulously dissected free from the surrounding soft tissue including the abdominal wall. Ultimately, the ovary and the cystic lesions to be clearly contiguous and not separable by any means. An Endo SILVIANO stapling device was used to transect the infundibulopelvic ligament containing the offending ovary and lesion. Additional dissection was undertaken. This lesion was placed in the endobag and extracted through the infraumbilical port site without problem and opened on the back table. Reinspection of the site showed focal bleeding, but irrigation was undertaken and minimal amounts of cautery were used in the area of the vascular pedicle. Shelley hemostatic agent was applied to the area as well, once hemostasis was assured. The appendix was re-examined and found to be normal. I did not proceed with appendectomy. The ileum was normal. The trocars were removed under direct visualization showing no sign of bleeding. The infraumbilical fascial incision was reapproximated with interrupted 0 Vicryl suture. All wounds were copiously irrigated with saline solution and skin closed with interrupted 3-0 Vicryl. Steri-Strips were applied after application of local anesthetic, 15 mL in total of 0.25% Marcaine with epinephrine. The patient was extubated, but not extubated in the deep state of sedation these were in precarious airway and she did have a fair amount of forceful coughing which I stabilized at the operative site perpetually until the coughing resolved. MD KELLI Perales/ANCELMO /[id number] cc: Ashish Mancia MD Copies: ASHISH METZGER RUSSELL BARR MD ~ Electronically Signed By: ELEONORA RODRIGUEZ MD 10/30/17 1003 PATIENT NAME: DOM SANDOVAL OPERATIVE REPORT DATE OF : 73 REPORT #: [id number] PHYSICIAN: ELEONORA RODRIGUEZ MD PCP: EREN MANCIA MD REPORT IS CONFIDENTIAL AND NOT TO BE RELEASED WITHOUT AUTHORIZATION
--- NOTE | 2017-11-02 12:56 | DS ---
[facility] [address] [place], [place] [address] Signed ADMISSION DATE: 10/27/2017 DISCHARGE DATE: 10/29/2017 REASON FOR ADMISSION: This morbidly obese white woman presented to the emergency room where she was thoroughly evaluated by Dr. Trevino with complaint of mid right abdominal pain. The pain started the night prior at about midnight. She had the buildup of antecedent pain on the right side earlier in the day. Clinical exam showed right mid abdominal tenderness. CBC with a white count of 14.1. Normal Chem profile, liver enzymes and lipase and urinalysis. The patient has undergone cholecystectomy in the past as well as hysterectomy with preservation of both ovaries. A CT scan of the abdomen was performed, which showed surgical absence of the gallbladder with the appendix considered normal and retrocecal, and the small and large bowel normal with surgical absence of the uterus, but right ovary, which appeared to be somewhat indistinguishable from adjacent bowel loops, which may have contained a cyst. Bladder was thick walled. She has a distant history of Graves disease, ultimately found to be 11 years previously, for which radioactive iodine ablation was employed. She was admitted for her abdominal pain at this time. PHYSICAL EXAMINATION: GENERAL: An obese woman who looked quite uncomfortable laying on her right side and knees drawn up. CHEST: Clear. HEART: Regular without murmur. ABDOMEN: Obese. Minimal Rovsing sign. Some tenderness in the right abdomen, not at McBurney point. SKIN: Hot and dry to touch. EXTREMITIES: There is no clubbing, cyanosis, or edema. HOSPITAL COURSE: She was admitted given fluid resuscitation and further consideration of her CT scan was undertaken, reviewed directly with the radiologist. A transvaginal and pelvic ultrasound had been obtained, which could not distinguish the right ovary from surrounding small bowel due to echo artifact. She had already undergone cholecystectomy in the past as well as hysterectomy. It was somewhat unusual to note on the following day of admission that her liver enzyme, AST and ALT were both elevated though the alkaline phosphatase and bilirubin were normal. She had a fair amount of "dry heaves and abdominal pain." She was considered appropriate for exploratory laparoscopy, however, she declined and Electronically Signed By: ELEONORA RODRIGUEZ MD 11/02/17 1256 PATIENT NAME: DOM SANDOVAL DISCHARGE SUMMARY DATE OF : 73 REPORT #: [id number] PHYSICIAN: ELEONORA RODRIGUEZ MD PCP: EREN MANCIA MD REPORT IS CONFIDENTIAL AND NOT TO BE RELEASED WITHOUT AUTHORIZATION [facility] [address] [place], [place] [address] Signed wished to be reevaluated in 24 hours. The following day, she was evaluated and found to have persistent episodes of dry heaves without fever at that point. She was considered possibly to have an ovarian problem, though it was not entirely clear and whether or not the appendix may have evolved in an appendicitis type issue. On November 28, 2017, she underwent laparoscopy where she was found to have an inflamed cystic lesion densely adherent to the right ovary; whether it was an ovarian cyst or a remnant of tube with torsion or something else was uncertain. The ovary itself appeared healthy. The cystic lesion attending to it quite inflamed. The appendix was not particularly retrocecal, was identified and was not resected as it was entirely normal. Excision of the right ovary with the adherent cystic lesion was undertaken without problem. She did well following operation. Her pain essentially resolved entirely, thanks to excision of ovary and its cystic pathologic process. By the time of discharge, she is ambulating well, tolerating regular diet, has minimal incisional pain, well managed by oral analgesics. She is discharged to home anticipating return in about a month. Wound instructions include keeping Steri-Strips on. Shower is okay tomorrow. She should lift no more than 20 pounds in the next 2 weeks FOLLOWUP PLAN: She will return to see me in approximately a month, sooner if there are problems of course. DISCHARGE MEDICATIONS: 1. [place] 7.5/325 1-2 p.o. q.6 hours p.r.n. pain #10. 2. Plain Tylenol 325 mg tablets two tabs p.o. q.6 hours as needed for pain. 3. Sertraline one tablet p.o. daily, 100 mg. 4. Hydrochlorothiazide 25 mg p.o. daily. 5. Simvastatin 20 mg p.o. daily. 6. Lisinopril 20 mg p.o. daily. 7. Metoprolol 100 mg p.o. b.i.d. 8. [place] Thyroid 240 mg p.o. daily. 9. Vitamin B12 1000 mcg orally daily. 10. Vitamin D3 10,000 units orally daily. 11. Potassium gluconate 99 mg p.o. daily. 12. Ibuprofen 200 mg as needed for pain. Electronically Signed By: ELEONORA RODRIGUEZ MD 11/02/17 1256 PATIENT NAME: DOM SANDOVAL DISCHARGE SUMMARY DATE OF : 73 REPORT #: [id number] PHYSICIAN: ELEONORA RODRIGUEZ MD PCP: EREN MANCIA MD REPORT IS CONFIDENTIAL AND NOT TO BE RELEASED WITHOUT AUTHORIZATION [place] [address] Signed DISCHARGE DIAGNOSES: 1. Severe abdominal pain related to ovarian process adherent to right ovary, uncertain at present whether ovarian cyst or torsion of tube remnant. 2. Status post laparoscopic excision of right adnexal tissues, October 28, 2017. 3. Morbid obesity. 4. Hypothyroidism. 5. Hypertension. FOLLOWUP PLAN: She is return to see me in approximately a month. She will also continue with her usual physician, Dr. Mancia. MD KELLI Perales/TRANGL /[id number] cc: Dr. Uriel Mancia Copies: ~ Electronically Signed By: ELEONORA RODRIGUEZ MD 11/02/17 1256 PATIENT NAME: DOM SANDOVAL DISCHARGE SUMMARY DATE OF : 73 REPORT #: [id number] PHYSICIAN: ELEONORA RODRIGUEZ MD PCP: EREN MANCIA MD REPORT IS CONFIDENTIAL AND NOT TO BE RELEASED WITHOUT AUTHORIZATION
== END 2017-10-29 16:10 | disposition home or self-care (01) | DRG 742 ==
LOC: ED 09:31 → MS 15:03
PROVIDERS: ADMIT Surgery
PROC: 0UT04ZZ Resection of Right Ovary, Percutaneous Endoscopic Approach (ICD-10-PCS; principal; 2017-10-28 14:00)
DX: N83.201 Unspecified ovarian cyst, right side (principal); Z68.41 Body mass index [BMI] 40.0-44.9, adult; E66.01 Morbid (severe) obesity due to excess calories; N70.92 Oophoritis, unspecified; F17.210 Nicotine dependence, cigarettes, uncomplicated; I10 Essential (primary) hypertension; G47.30 Sleep apnea, unspecified; E89.0 Postprocedural hypothyroidism; Z88.5 Allergy status to narcotic agent; Z90.49 Acquired absence of other specified parts of digestive tract; Z90.710 Acquired absence of both cervix and uterus; Z79.899 Other long term (current) drug therapy
CPT/HCPCS: 00840; 36415; 74177; 76830; 76856; 80053; 81001; 83605; 83690; 84439; 84443; 84481; 85025; 85610; 86704; 86706; 86709; 86803; 87040; 87340; 93005; 93010; 94762; 96361; 96372; 96374; 96375; 96376; 99285; J0330; J0690; J1100; J1170; J1644; J1885; J2250; J2270; J2405; J2550; J2704; J3010; J7030; J7120; Q9967

== ENCOUNTER 2019-02-23 18:16 | Emergency (ER) | payer BC ==
[~2019-02-23] VITALS: Ht 170.2 cm; Wt 126.0 kg
[~2019-02-23 18:16] MED LIST changes: +ARMOUR THYROID240 MG PO; +HYDROCHLOROTHIA25 MG PO; +HYDROCODON-ACE1 EA11 PO; +IBUPROFEN200 MG PO; +MAPAP325 MG PO; +METOPROLOL TAR100 MG PO; +POTASSIUM GLUCO99 MG PO; +PRINIVIL20 MG PO; +SIMVASTATIN20 MG PO; +VITAMIN B-121000 MCG PO; +VITAMIN D10000 UNIT PO
[2019-02-23] MEDS ORDERED: ZOFRAN4 MG PO (23:33)
[2019-02-23] MEDS ORDERED: KEFLEX500 MG PO (23:33)
[2019-02-23] MEDS ORDERED: TRAMADOL HCL50 MG PO (23:33)
== END 2019-02-23 23:50 | disposition home or self-care (01) ==
LOC: ED 18:16
DX: N39.0 Urinary tract infection, site not specified (principal); I10 Essential (primary) hypertension; F17.200 Nicotine dependence, unspecified, uncomplicated; Z90.49 Acquired absence of other specified parts of digestive tract; Z90.710 Acquired absence of both cervix and uterus; Z88.5 Allergy status to narcotic agent; Z79.899 Other long term (current) drug therapy
CPT/HCPCS: 74177; 80053; 81001; 83690; 84703; 85025; 87077; 87088; 87186; 96361; 99284-25; J1170; J1885; J2405; J2550; J7030; Q9967